=== PATIENT | female | born 1995 | race Two or more races ===

== ENCOUNTER 2020-12-05 14:55 | Outpatient (CLI) | payer OTHER ==
[2020-12-05] MEDS ORDERED: PRENATAL CAPLE1 EAC1 PO (15:07)
== END 2020-12-06 10:52 | disposition home or self-care (01) ==
LOC: OBS/DEL 14:55
PROVIDERS: ATTEND Specialist
DX: O36.8120 Decreased fetal movements, second trimester, not applicable or unspecified (principal); Z3A.25 25 weeks gestation of pregnancy

== ENCOUNTER 2021-02-19 15:16 | Inpatient (IN) | payer OTHER ==
[~2021-02-19] VITALS: Ht 162.6 cm; Wt 87.5 kg
[~2021-02-19 15:16] MED LIST: PRENATAL CAPLE1 EAC1 PO
== END 2021-02-20 12:20 | disposition home or self-care (01) | DRG 833 ==
LOC: LDR 15:16
PROVIDERS: ADMIT Specialist; ATTEND Specialist
PROC: 4A1HXFZ Monitoring of Products of Conception, Cardiac Rhythm, External Approach (ICD-10-PCS; principal; 2021-02-19)
DX: O47.03 False labor before 37 completed weeks of gestation, third trimester (principal); O24.410 Gestational diabetes mellitus in pregnancy, diet controlled; Z3A.36 36 weeks gestation of pregnancy

== ENCOUNTER 2021-02-22 15:58 | Outpatient (CLI) | payer OTHER | END 2021-02-23 12:41 | disposition home or self-care (01) | LOC: OBS/DEL 15:58 | PROVIDERS: ATTEND Specialist | DX: O60.03 Preterm labor without delivery, third trimester (principal); O24.410 Gestational diabetes mellitus in pregnancy, diet controlled; Z3A.36 36 weeks gestation of pregnancy ==

== ENCOUNTER 2021-03-04 11:01 | Inpatient (IN) | payer OTHER ==
[~2021-03-04] VITALS: Ht 162.6 cm; Wt 89.8 kg
== END 2021-03-07 11:02 | disposition home or self-care (01) | DRG 807 ==
LOC: OBS/DEL 11:01 → LDR 03-05 08:12 → OB/GYN 03-05 13:09
PROVIDERS: ADMIT Specialist; ATTEND Specialist
PROC: 10E0XZZ Delivery of Products of Conception, External Approach (ICD-10-PCS; principal; 2021-03-05)
PROC: 0UQMXZZ Repair Vulva, External Approach (ICD-10-PCS; 2021-03-05)
PROC: 10907ZC Drainage of Amniotic Fluid, Therapeutic from Products of Conception, Via Natural or Artificial Opening (ICD-10-PCS; 2021-03-05)
PROC: 3E033VJ Introduction of Other Hormone into Peripheral Vein, Percutaneous Approach (ICD-10-PCS; 2021-03-05)
PROC: 4A1HXFZ Monitoring of Products of Conception, Cardiac Rhythm, External Approach (ICD-10-PCS; 2021-03-05)
DX: O24.420 Gestational diabetes mellitus in childbirth, diet controlled (principal); O71.82 Other specified trauma to perineum and vulva; Z37.0 Single live birth; Z3A.38 38 weeks gestation of pregnancy; Z20.822 Contact with and (suspected) exposure to COVID-19